=== PATIENT | male | born 1955 | race Caucasian/White ===

== ENCOUNTER 2016-11-26 10:04 | Emergency (ER) | payer OTHER ==
[~2016-11-26] VITALS: Ht 188 cm; Wt 88.5 kg
[~2016-11-26 10:04] MED LIST: ATEN25TA2 PO; BENA10TA10 PO; FURO-570 PO; MEG40 PO; POTA20TE62 PO; ZOLP10TA1 PO
--- NOTE | 2016-11-26 10:04 | NUR ---
Patient was BIBA and taken to bed 08 via gurney per EMS.
[2016-11-26 10:06] VITALS: BP 109/63
--- NOTE | 2016-11-26 10:29 | NUR ---
Dr. Duran evaluating patient at bedside.
--- NOTE | 2016-11-26 10:32 | NUR ---
61 YO MALE BIB EMS FROM FIELD FOR SOB AND COUGH . DENIES N/V/D; SKIN IS PINK/WARM/DRY; AAOX4 WITH EVEN AND STEADY GAIT; LUNGS CLEAR BL; HR EVEN AND REGULAR; PT DENIES ANY FEVER, or CP AT THIS TIME; PATIENT STATES PAIN OF 0/10 AT THIS TIME; VSS; PATIENT POSITIONED FOR COMFORT; HOB ELEVATED; BEDRAILS UP X2; BED DOWN. ER MD MADE AWARE OF PT STATUS.
--- NOTE | 2016-11-26 10:35 | NUR ---
LAB at bedside.
[2016-11-26 10:51] LABS: BASOPHILS # (AUTO) 0.4 K/uL (0.00-0.22); BASOPHILS % (AUTO) 3.2 % (0.0-2.0); EOSINOPHILS % (AUTO) 0.3 % (0.0-4.0); HEMATOCRIT 42.6 % (36-52); HEMOGLOBIN 13.9 g/dL (12.0-18.0); LYMPHOCYTES % (AUTO) 9.3 % (20.5-51.1); MEAN CORPUSCULAR HEMOGLOBIN 28 pg (27-31); MEAN CORPUSCULAR HGB CONC 33 g/dL (33-37); MEAN CORPUSCULAR VOLUME 86 fL (80-94); MONOCYTES # (AUTO) 1.3 K/uL (0.8-1.0); MONOCYTES % (AUTO) 11.5 % (1.7-9.3); NEUTROPHILS # (AUTO) 8.2 K/uL (1.8-7.7); NEUTROPHILS % (AUTO) 75.7 % (42.2-75.2); PLATELET COUNT (AUTO) 213 K/uL (140-450); RED BLOOD CELL COUNT(AUTO) 4.95 MIL/uL (4.20-6.10); RED CELL DISTRIBUTION WIDTH 12.7 % (11.6-13.7)
--- NOTE | 2016-11-26 10:56 | NUR ---
Patient being taken to CT via aurelia leach.
[2016-11-26 11:03] LABS: WHITE BLOOD COUNT (AUTO) 10.9 K/uL (4.8-10.8)
--- NOTE | 2016-11-26 11:10 | NUR ---
Patient back from CT via [facility].
[2016-11-26 11:20] LABS: ALBUMIN 3.4 g/dL (3.4-5.0); ANION GAP 8.5 (8-16); CARBON DIOXIDE 33.1 mmol/L (21-32); CREATININE 1.4 mg/dL (0.7-1.3); POTASSIUM 3.6 mmol/L (3.5-5.1)
[2016-11-26 11:47] LABS: APPEARANCE,URINE CLEAR (CLEAR); BILIRUBIN,URINE NEGATIVE (NEGATIVE); BLOOD, URINE NEGATIVE (NEGATIVE); COLOR,URINE YELLOW (YELLOW); LEUKOCYTE ESTERASE ,URINE NEGATIVE (NEGATIVE); NITRITE, URINE NEGATIVE (NEGATIVE); UGLUCOSE NEGATIVE (NEGATIVE)
[2016-11-26 11:53] LABS: BARBITURATE, URINE NEG. ng/ml (NEG <=200); BENZODIAZEPINE, URINE NEG. ng/mL (NEG <=200); CANNABINOID, URINE NEG. ng/mL (NEG <=50); COCAINE, URINE NEG. ng/mL (NEG <=300); OPIATE, URINE NEG. ng/mL (NEG <=2000); PHENCYCLIDINE SCREEN,URINE NEG. ng/mL (NEG <=25)
[2016-11-26 12:44] VITALS: BP 119/78
--- NOTE | 2016-11-26 12:44 | NUR ---
Patient discharged with v/s stable. Written and verbal after care instructions given and explained. Patient alert, oriented and verbalized understanding of instructions. Ambulatory with to car. All questions addressed prior to discharge. ID band removed. Patient advised to follow up with PMD. Rx of levaquin given. Patient educated on indication of medication including possible reaction and side effects. Opportunity to ask questions provided and answered.
== END 2016-11-26 12:44 | disposition home or self-care (01) ==
LOC: MED 10:04
DX: J18.9 Pneumonia, unspecified organism (principal); G92 Toxic encephalopathy; T43.625A Adverse effect of amphetamines, initial encounter; Y92.89 Other specified places as the place of occurrence of the external cause; J45.909 Unspecified asthma, uncomplicated; I11.0 Hypertensive heart disease with heart failure; I50.9 Heart failure, unspecified
CPT/HCPCS: 36415; 70450; 71010; 80053; 80305; 81003; 82140; 83605; 83880; 84484; 85025; 87804; 99285; Q0092

== ENCOUNTER 2017-03-02 23:19 | Emergency (ER) | payer OTHER ==
[~2017-03-02] VITALS: Ht 188 cm; Wt 90.7 kg
[2017-03-02 23:23] VITALS: BP 126/90
--- NOTE | 2017-03-03 03:33 | NUR ---
61 Y/O M W/C/O REDNESS/SWELLING TO R LOWER LEG, AND CHILLS X 3 DAYS. MED HX CHF. DENIES ANY SOB.N WALLACE ROBLES MADE AWARE.
--- NOTE | 2017-03-03 04:05 | NUR ---
Dr. Duran evaluating patient at bedside.
[2017-03-03] MEDS ORDERED: cefTRIAXone 1,000 MG in LIDOCAINE 1% ***ER ONLY *** 2.1 ML IM ONE (04:10)
[2017-03-03 04:36] VITALS: BP 136/96
--- NOTE | 2017-03-03 04:36 | NUR ---
Patient discharged with v/s stable. Written and verbal after care instructions given and explained. Patient alert, oriented and verbalized understanding of instructions. Ambulatory with steady gait. All questions addressed prior to discharge. ID band removed. Patient advised to follow up with PMD IN 2-3 DAYS. Rx of KEFLEX, AND BACTRIM given. Patient educated on indication of medication including possible reaction and side effects. Opportunity to ask questions provided and answered.
== END 2017-03-03 04:36 | disposition home or self-care (01) ==
LOC: MED 23:19
DX: L03.115 Cellulitis of right lower limb (principal); J45.909 Unspecified asthma, uncomplicated; I50.9 Heart failure, unspecified; I10 Essential (primary) hypertension; Z86.73 Personal history of transient ischemic attack (TIA), and cerebral infarction without residual deficits; Z79.899 Other long term (current) drug therapy
CPT/HCPCS: 96372; 99283; J0696; J2001

== ENCOUNTER 2018-02-14 15:10 | Inpatient (IN) | payer OTHER ==
[~2018-02-14] VITALS: Ht 188 cm; Wt 90.7 kg
[2018-02-14 15:15] VITALS: BP 109/79
[2018-02-14] MEDS ORDERED: ASPIRIN 81 MG TAB.CHEW PO ONE (15:35)
[2018-02-14 16:15] LABS: BASOPHILS % (AUTO) 0.6 % (0.0-2.0); EOSINOPHILS # (AUTO) 0.2 K/uL (0-0.4); EOSINOPHILS % (AUTO) 2.6 % (0.0-4.0); HEMATOCRIT 40.9 % (36-52); HEMOGLOBIN 13.2 g/dL (12.0-18.0); LYMPHOCYTES # (AUTO) 1.6 K/uL (2.0-11.5); LYMPHOCYTES % (AUTO) 26.1 % (20.5-51.1); MEAN CORPUSCULAR HEMOGLOBIN 28 pg (27-31); MEAN CORPUSCULAR HGB CONC 32 g/dL (33-37); MEAN CORPUSCULAR VOLUME 87.4 fL (80-94); MONOCYTES # (AUTO) 0.6 K/uL (0.8-1.0); MONOCYTES % (AUTO) 10.1 % (1.7-9.3); NEUTROPHILS # (AUTO) 3.8 K/uL (1.8-7.7); NEUTROPHILS % (AUTO) 60.6 % (42.2-75.2); PLATELET COUNT (AUTO) 220 K/uL (140-450); RED BLOOD CELL COUNT(AUTO) 4.68 MIL/uL (4.20-6.10); RED CELL DISTRIBUTION WIDTH 13.5 % (11.6-13.7); WHITE BLOOD COUNT (AUTO) 6.2 K/uL (4.8-10.8)
[2018-02-14 16:22] LABS: ANION GAP 10.7 (8-16); CREATININE 1.1 mg/dL (0.7-1.3); POTASSIUM 3.7 mmol/L (3.5-5.1); TOTAL BILIRUBIN 0.5 mg/dL (0.0-1.0)
[2018-02-14] MEDS ORDERED: NITROGLYCERIN 2% 1 GM PKT TP ONE (16:40)
[2018-02-14] MEDS ORDERED: KETOROLAC 30 MG/ML VIAL IVP PRN (17:30)
[2018-02-14] MEDS ORDERED: ACETAMINOPHEN 325 MG TAB PO PRN (17:30)
[2018-02-14] MEDS ORDERED: LORazepam 2 MG/ML VIAL IVP PRN (17:30)
[2018-02-14] MEDS ORDERED: NITROGLYCERIN 0.4 MG TAB SL PRN (17:30)
[2018-02-14] MEDS ORDERED: HYDROmorphone 1 MG/ML AMP IVP PRN (17:30)
[2018-02-14] MEDS ORDERED: ONDANSETRON 4 MG/2 ML VIAL IVP PRN (17:30)
[2018-02-14] MEDS ORDERED: HYDROcodone/APAP 5/325 MG 1 TAB TAB PO PRN (17:30)
[2018-02-14 18:35] VITALS: BP 101/74
[2018-02-14 18:46] VITALS: BP 102/81
[2018-02-14] MEDS: MEGESTROL 40 MG TAB PO SCH (20:38)
[2018-02-14] MEDS: SIMVASTATIN 20 MG TAB PO SCH (20:38)
[2018-02-14] MEDS ORDERED: ZOLPIDEM 10 MG TAB PO PRN (21:00)
[2018-02-15] VITALS: BP 112/76
[2018-02-15 00:24] LABS: CREATINE KINASE MB 1.7 ng/mL (0-3.6)
[2018-02-15 04:00] VITALS: BP 110/58
[2018-02-15 05:10] LABS: ALBUMIN 2.7 g/dL (3.4-5.0); ANION GAP 12.2 (8-16); CARBON DIOXIDE 26.6 mmol/L (21-32); CREATININE 1.1 mg/dL (0.7-1.3); MAGNESIUM 1.8 mg/dL (1.8-2.4); POTASSIUM 3.8 mmol/L (3.5-5.1); TOTAL BILIRUBIN 0.5 mg/dL (0.0-1.0)
[2018-02-15 08:00] VITALS: BP 104/80
[2018-02-15] MEDS: ENOXAPARIN 40 MG/0.4 ML SYR SUBQ SCH ×2 (08:55→09:00)
[2018-02-15] MEDS: MEGESTROL 40 MG TAB PO SCH ×3 (08:57→20:56)
[2018-02-15] MEDS: ATENOLOL 25 MG TAB PO SCH ×2 (08:57→09:00)
[2018-02-15] MEDS: POTASSIUM CHLORIDE 10 MEQ TABER PO SCH (08:58)
[2018-02-15] MEDS: BENAZEPRIL 10 MG TAB PO SCH (08:58)
[2018-02-15] MEDS: ASPIRIN 81 MG TAB.CHEW PO SCH (08:58)
[2018-02-15 09:14] LABS: CREATINE KINASE MB 1.8 ng/mL (0-3.6)
[2018-02-15] MEDS ORDERED: FUROSEMIDE 100 MG/10 ML VIAL IV SCH (10:30)
[2018-02-15] MEDS: ALBUTEROL 0.083% 2.5 MG/3 ML NEBU IH PRN (11:17)
[2018-02-15 12:00] VITALS: BP 112/77
[2018-02-15 16:00] VITALS: BP 98/73
[2018-02-15 20:00] VITALS: BP 99/67
[2018-02-15] MEDS: SIMVASTATIN 20 MG TAB PO SCH (20:55)
[2018-02-15] MEDS: MUPIROCIN CA NASAL 2% 1GM TUBE NS SCH (20:56)
[2018-02-15] MEDS: CHLORHEXADINE GLUC 2% CLOTH TP SCH (20:56)
[2018-02-16] VITALS: BP 93/56
[2018-02-16 03:09] LABS: BARBITURATE, URINE NEG. ng/ml (NEG <=200); BENZODIAZEPINE, URINE NEG. ng/mL (NEG <=200); CANNABINOID, URINE NEG. ng/mL (NEG <=50); COCAINE, URINE NEG. ng/mL (NEG <=300); OPIATE, URINE NEG. ng/mL (NEG <=2000); PHENCYCLIDINE SCREEN,URINE NEG. ng/mL (NEG <=25)
[2018-02-16 04:00] VITALS: BP 94/66
[2018-02-16 08:00] VITALS: BP 115/78
[2018-02-16] MEDS: ASPIRIN 81 MG TAB.CHEW PO SCH (08:35)
[2018-02-16] MEDS: POTASSIUM CHLORIDE 10 MEQ TABER PO SCH (08:35)
[2018-02-16] MEDS ORDERED: FUROSEMIDE 40 MG/4 ML VIAL IVP SCH (09:00)
[2018-02-16] MEDS: MEGESTROL 40 MG TAB PO SCH ×2 (09:00→21:00)
[2018-02-16] MEDS: ATENOLOL 25 MG TAB PO SCH (09:00)
[2018-02-16] MEDS: ENOXAPARIN 40 MG/0.4 ML SYR SUBQ SCH (09:00)
[2018-02-16] MEDS: BENAZEPRIL 10 MG TAB PO SCH (09:00)
[2018-02-16 12:00] VITALS: BP 104/78
[2018-02-16 16:33] VITALS: BP 108/68
[2018-02-16 20:00] VITALS: BP 110/74
[2018-02-16] MEDS: MUPIROCIN CA NASAL 2% 1GM TUBE NS SCH (20:36)
[2018-02-16] MEDS: SIMVASTATIN 20 MG TAB PO SCH (20:36)
[2018-02-16] MEDS: CHLORHEXADINE GLUC 2% CLOTH TP SCH (20:37)
[2018-02-16] MEDS ORDERED: FUROSEMIDE 40 MG/4 ML VIAL IVP ONE (21:00)
[2018-02-17] VITALS: BP 109/68
[2018-02-17 04:00] VITALS: BP 110/72
[2018-02-17 07:34] VITALS: BP 101/61
[2018-02-17] MEDS: POTASSIUM CHLORIDE 10 MEQ TABER PO SCH (08:33)
[2018-02-17] MEDS: ASPIRIN 81 MG TAB.CHEW PO SCH (08:33)
[2018-02-17] MEDS: ENOXAPARIN 40 MG/0.4 ML SYR SUBQ SCH (08:38)
[2018-02-17] MEDS: MEGESTROL 40 MG TAB PO SCH (09:00)
[2018-02-17] MEDS: ATENOLOL 25 MG TAB PO SCH (09:00)
[2018-02-17] MEDS: BENAZEPRIL 10 MG TAB PO SCH (09:00)
[2018-02-17] MEDS: ALBUTEROL 0.083% 2.5 MG/3 ML NEBU IH PRN (11:17)
[2018-02-17 12:00] VITALS: BP 116/96
== END 2018-02-17 15:20 | disposition home or self-care (01) | DRG 190 ==
LOC: MED 15:10 → MTU 17:36
PROVIDERS: ADMIT Hospitalist; ATTEND Hospitalist
DX: I21.4 Non-ST elevation (NSTEMI) myocardial infarction (principal); I50.43 Acute on chronic combined systolic (congestive) and diastolic (congestive) heart failure; I42.7 Cardiomyopathy due to drug and external agent; E44.1 Mild protein-calorie malnutrition; E11.9 Type 2 diabetes mellitus without complications; I25.10 Atherosclerotic heart disease of native coronary artery without angina pectoris; J45.909 Unspecified asthma, uncomplicated; I11.0 Hypertensive heart disease with heart failure; F10.10 Alcohol abuse, uncomplicated; Y90.9 Presence of alcohol in blood, level not specified; Z68.25 Body mass index [BMI] 25.0-25.9, adult; Z79.899 Other long term (current) drug therapy; Z86.73 Personal history of transient ischemic attack (TIA), and cerebral infarction without residual deficits; F15.10 Other stimulant abuse, uncomplicated
CPT/HCPCS: 36415; 71045; 80053; 80305; 82550; 82553; 83735; 83880; 84484; 85025; 87081; 94640; 99285; J1650; J1940; J2060; J7613; Q0092

== ENCOUNTER 2018-12-25 14:15 | Emergency (ER) | payer OTHER ==
[~2018-12-25] VITALS: Ht 188 cm; Wt 79.4 kg
[~2018-12-25 14:15] MED LIST changes: -BENA10TA10 PO; +BENA10TA17 PO
[2018-12-25 14:18] VITALS: BP 122/82
--- NOTE | 2018-12-25 14:23 | NUR ---
PT AMBULATED TO BED 05
--- NOTE | 2018-12-25 14:39 | NUR ---
63M C/O DOG BITE X TODAY ON LEFT FA DURING WORK. LAST TDAP UNKNOWN. BLEEDING CONTROLLED. BA/O X 3 FOLLOWS COMMANDS; PAIN IS AN 8/10 THROBBING PAIN. ERMD MADE AWARE OF STATUS. SIDE RAILS X1. HX-CHF RX: LASIX
--- NOTE | 2018-12-25 14:42 | NUR ---
PT MOVED TO BED 6
[2018-12-25] MEDS ORDERED: KETOROLAC 30 MG/ML VIAL IM ONE (15:15)
[2018-12-25] MEDS ORDERED: BACITRACIN OINT 500 UNITS/GM PKT TP ONE (15:15)
[2018-12-25 15:35] VITALS: BP 120/74
--- NOTE | 2018-12-25 15:35 | NUR ---
Patient discharged with v/s stable. Written and verbal after care instructions given and explained. Patient alert, oriented and verbalized understanding of instructions. Ambulatory with steady gait. All questions addressed prior to discharge. ID band removed. Patient advised to follow up with PMD. Rx of AUGMENTIN, ACETAMINOPHEN given. Patient educated on indication of medication including possible reaction and side effects. Opportunity to ask questions provided and answered.
== END 2018-12-25 15:35 | disposition home or self-care (01) ==
LOC: MED 14:15
DX: S51.812A Laceration without foreign body of left forearm, initial encounter (principal); J45.909 Unspecified asthma, uncomplicated; I11.0 Hypertensive heart disease with heart failure; I50.9 Heart failure, unspecified; Z86.73 Personal history of transient ischemic attack (TIA), and cerebral infarction without residual deficits; Z79.899 Other long term (current) drug therapy; W54.0XXA Bitten by dog, initial encounter; Y93.89 Activity, other specified; Y92.096 Garden or yard of other non-institutional residence as the place of occurrence of the external cause; Y99.8 Other external cause status
CPT/HCPCS: 90471; 90715; 96372; 99283; J1885

== ENCOUNTER 2019-04-23 10:22 | Emergency (ER) | payer OTHER ==
[~2019-04-23] VITALS: Ht 188 cm; Wt 83.9 kg
[~2019-04-23 10:22] MED LIST changes: -BENA10TA17 PO; +BENA10TA60 PO
[2019-04-23 10:28] VITALS: BP 121/75
--- NOTE | 2019-04-23 10:30 | NUR ---
PT TO ER BED 4
--- NOTE | 2019-04-23 10:41 | NUR ---
63/M BIB SELF C/O CONSTANT Right BACK PAIN x 3 days. + Nausea. Denies V/D. Denies urinary symptoms.Med hx: CHF, Taking Lasix QD. PATIENT STATES PAIN OF 9/10 AT THIS TIME.PATIENT POSITIONED FOR COMFORT; HOB ELEVATED; BEDRAILS UP X1; BED DOWN. ER MD MADE AWARE OF PT STATUS.
--- NOTE | 2019-04-23 11:00 | NUR ---
LAB AT BEDSIDE.
[2019-04-23 11:10] LABS: BASOPHILS # (AUTO) 0.1 K/uL (0.00-0.22); BASOPHILS % (AUTO) 1.2 % (0.0-2.0); EOSINOPHILS # (AUTO) 0.1 K/uL (0-0.4); EOSINOPHILS % (AUTO) 1.6 % (0.0-4.0); HEMATOCRIT 41.1 % (36-52); HEMOGLOBIN 14.1 g/dL (12.0-18.0); LYMPHOCYTES # (AUTO) 1.3 K/uL (2.0-11.5); LYMPHOCYTES % (AUTO) 24.9 % (20.5-51.1); MEAN CORPUSCULAR HEMOGLOBIN 30 pg (27-31); MEAN CORPUSCULAR HGB CONC 34 g/dL (33-37); MEAN CORPUSCULAR VOLUME 86.6 fL (80-94); MONOCYTES # (AUTO) 0.4 K/uL (0.8-1.0); MONOCYTES % (AUTO) 8.3 % (1.7-9.3); NEUTROPHILS # (AUTO) 3.3 K/uL (1.8-7.7); PLATELET COUNT (AUTO) 203 K/uL (140-450); RED BLOOD CELL COUNT(AUTO) 4.74 MIL/uL (4.20-6.10); WHITE BLOOD COUNT (AUTO) 5.2 K/uL (4.8-10.8)
[2019-04-23 11:12] LABS: BILIRUBIN,URINE NEGATIVE (NEGATIVE); BLOOD, URINE NEGATIVE (NEGATIVE); COLOR,URINE DARK YELLOW (YELLOW); LEUKOCYTE ESTERASE ,URINE NEGATIVE (NEGATIVE); NITRITE, URINE NEGATIVE (NEGATIVE); UGLUCOSE NEGATIVE (NEGATIVE)
[2019-04-23 11:28] LABS: ALBUMIN 3.7 g/dL (3.4-5.0); ANION GAP 12.8 (8-16); CARBON DIOXIDE 30.9 mmol/L (21-32); CREATININE 1.1 mg/dL (0.6-1.3); POTASSIUM 3.7 mmol/L (3.5-5.1); TOTAL BILIRUBIN 0.6 mg/dL (0.0-1.0)
[2019-04-23 11:37] LABS: APPEARANCE,URINE CLEAR (CLEAR); RBC,URINE 0-5 /HPF (0-5); WBC,URINE 0-5 /HPF (0-5)
--- NOTE | 2019-04-23 11:37 | NUR ---
REPORTED GIVEN TO VALENTE CHARGE NURSE.
[2019-04-23 12:35] VITALS: BP 123/69
--- NOTE | 2019-04-23 12:35 | NUR ---
Patient discharged with v/s stable. Written and verbal after care instructions given and explained. Patient alert, oriented and verbalized understanding of instructions. Ambulatory with steady gait. All questions addressed prior to discharge. ID band removed. Patient advised to follow up with PMD. Rx of ZOFRAN, MIRALAX& NORCO given. Patient educated on indication of medication including possible reaction and side effects. Opportunity to ask questions provided and answered.
== END 2019-04-23 12:35 | disposition home or self-care (01) ==
LOC: MED 10:22
DX: K59.00 Constipation, unspecified (principal); M54.5 Low back pain; R42 Dizziness and giddiness; J45.909 Unspecified asthma, uncomplicated; I10 Essential (primary) hypertension; Z86.73 Personal history of transient ischemic attack (TIA), and cerebral infarction without residual deficits; Z79.899 Other long term (current) drug therapy
CPT/HCPCS: 36415; 80053; 81001; 83690; 85025; 99284

== ENCOUNTER 2019-06-23 12:33 | Emergency (ER) | payer OTHER ==
[~2019-06-23] VITALS: Ht 188 cm; Wt 79.4 kg
[2019-06-23 12:34] VITALS: BP 120/57
[2019-06-23 13:40] VITALS: BP 119/63
== END 2019-06-23 13:40 | disposition home or self-care (01) ==
LOC: MED 12:33
DX: R09.89 Other specified symptoms and signs involving the circulatory and respiratory systems (principal); Z20.828 Contact with and (suspected) exposure to other viral communicable diseases; H57.13 Ocular pain, bilateral; J45.909 Unspecified asthma, uncomplicated; I11.0 Hypertensive heart disease with heart failure; I50.9 Heart failure, unspecified; Z86.73 Personal history of transient ischemic attack (TIA), and cerebral infarction without residual deficits
CPT/HCPCS: 71045; 99283; Q0092

== ENCOUNTER 2019-07-02 12:28 | Emergency (ER) | payer OTHER ==
[~2019-07-02] VITALS: Ht 188 cm; Wt 77.1 kg
[2019-07-02 12:31] VITALS: BP 109/74
--- NOTE | 2019-07-02 12:31 | NUR ---
Patient ambulated to bed 4. RN evaluating patient at bedside.
--- NOTE | 2019-07-02 12:43 | NUR ---
EKG completed at bedside by EMT.
[2019-07-02] MEDS ORDERED: KETOROLAC 30 MG/ML VIAL IVP ONE (12:55)
--- NOTE | 2019-07-02 12:55 | NUR ---
C/O INTERMITTENT CHEST PAIN 3/10 AND THROBBING, RADIATING TO L ARM X 3 DAYS. PT DENIES SOB, N/V, SKIN WARM/DRY. PT A&O X4, ANSWERING QUESTIONS APPROPRIATELY. NO ACUTE DISTRESS NOTED. PT REPORTS HX OF CHF & STROKE. DENIES TAKING ANTICOAGULANTS. 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 BED IN LOW POSITION, SIDE RAIL UP X1.
--- NOTE | 2019-07-02 13:04 | NUR ---
XR AT BEDSIDE.
[2019-07-02 13:08] LABS: BASOPHILS # (AUTO) 0.1 K/uL (0.00-0.22); BASOPHILS % (AUTO) 1.4 % (0.0-2.0); EOSINOPHILS # (AUTO) 0.1 K/uL (0-0.4); EOSINOPHILS % (AUTO) 3.2 % (0.0-4.0); HEMATOCRIT 39.3 % (36-52); HEMOGLOBIN 13.3 g/dL (12.0-18.0); LYMPHOCYTES # (AUTO) 1.5 K/uL (2.0-11.5); LYMPHOCYTES % (AUTO) 33.8 % (20.5-51.1); MEAN CORPUSCULAR HEMOGLOBIN 30 pg (27-31); MEAN CORPUSCULAR HGB CONC 34 g/dL (33-37); MEAN CORPUSCULAR VOLUME 88.6 fL (80-94); MONOCYTES # (AUTO) 0.4 K/uL (0.8-1.0); MONOCYTES % (AUTO) 9.5 % (1.7-9.3); NEUTROPHILS # (AUTO) 2.2 K/uL (1.8-7.7); NEUTROPHILS % (AUTO) 52.1 % (42.2-75.2); PLATELET COUNT (AUTO) 210 K/uL (140-450); RED BLOOD CELL COUNT(AUTO) 4.43 MIL/uL (4.20-6.10); RED CELL DISTRIBUTION WIDTH 13.4 % (11.6-13.7); WHITE BLOOD COUNT (AUTO) 4.3 K/uL (4.8-10.8)
--- NOTE | 2019-07-02 13:51 | NUR ---
Dr. Zimmerman is evaluating the patient at bedside.
[2019-07-02 14:14] LABS: ALBUMIN 3.8 g/dL (3.4-5.0); ANION GAP 9.2 (8-16); CARBON DIOXIDE 31.4 mmol/L (21-32); CREATININE 1.2 mg/dL (0.6-1.3); POTASSIUM 3.6 mmol/L (3.5-5.1); TOTAL BILIRUBIN 0.7 mg/dL (0.0-1.0)
[2019-07-02 15:53] VITALS: BP 115/72
== END 2019-07-02 15:53 | disposition home or self-care (01) ==
LOC: MED 12:28
DX: R07.9 Chest pain, unspecified (principal); I11.0 Hypertensive heart disease with heart failure; J45.909 Unspecified asthma, uncomplicated; Z79.899 Other long term (current) drug therapy
CPT/HCPCS: 36415; 71045; 80053; 81002; 84484; 85025; 93005; 96374; 99285; J1885; Q0092

== ENCOUNTER 2019-09-22 05:35 | Emergency (ER) | payer OTHER ==
[~2019-09-22] VITALS: Ht 188 cm; Wt 77.1 kg
[2019-09-22 05:40] VITALS: BP 134/98
--- NOTE | 2019-09-22 05:43 | NUR ---
PT AMBULATED TO BED #11
--- NOTE | 2019-09-22 05:48 | NUR ---
63 Y/O MALE C/O R HAND, LFOREARM, AND R LOWER LEG, ITCHYNESS. X2DAYS. SWELLING AND REDNESS NOTED. 5/10 NUMBNESS AND PAIN. CAP REFILL <3 SECONDS. PMH: CHF, HTN, MINI STROKE 1 YR AGO. EDMUNDO
--- NOTE | 2019-09-22 05:49 | NUR ---
ERMD AT BEDSIDE EXAMINING PT
[2019-09-22 05:57] VITALS: BP 134/98
--- NOTE | 2019-09-22 05:57 | NUR ---
Patient discharged with v/s stable. Written and verbal after care instructions given and explained. Patient alert, oriented and verbalized understanding of instructions. Ambulatory with steady gait. All questions addressed prior to discharge. ID band removed. Patient advised to follow up with PMD. Rx of KEFLEX, BACTRIM, AND BENADRYL given. Patient educated on indication of medication including possible reaction and side effects. Opportunity to ask questions provided and answered.
== END 2019-09-22 05:57 | disposition home or self-care (01) ==
LOC: MED 05:35
DX: S60.561A Insect bite (nonvenomous) of right hand, initial encounter (principal); S80.861A Insect bite (nonvenomous), right lower leg, initial encounter; L03.114 Cellulitis of left upper limb; I50.9 Heart failure, unspecified; I63.9 Cerebral infarction, unspecified; I10 Essential (primary) hypertension; Z79.899 Other long term (current) drug therapy; W57.XXXA Bitten or stung by nonvenomous insect and other nonvenomous arthropods, initial encounter; Y93.89 Activity, other specified; Y92.89 Other specified places as the place of occurrence of the external cause; Y99.8 Other external cause status
CPT/HCPCS: 99283

== ENCOUNTER 2019-10-06 18:32 | Emergency (ER) | payer OTHER ==
[~2019-10-06] VITALS: Ht 188 cm; Wt 74.8 kg
[2019-10-06 18:45] VITALS: BP 142/95
[2019-10-06 20:30] LABS: BASOPHILS # (AUTO) 0.1 K/uL (0.00-0.22); EOSINOPHILS # (AUTO) 0.2 K/uL (0-0.4); EOSINOPHILS % (AUTO) 2.9 % (0.0-4.0); HEMATOCRIT 39.3 % (36-52); HEMOGLOBIN 13.3 g/dL (12.0-18.0); LYMPHOCYTES # (AUTO) 2.2 K/uL (2.0-11.5); LYMPHOCYTES % (AUTO) 41.3 % (20.5-51.1); MEAN CORPUSCULAR HEMOGLOBIN 30 pg (27-31); MEAN CORPUSCULAR HGB CONC 34 g/dL (33-37); MEAN CORPUSCULAR VOLUME 89.1 fL (80-94); MONOCYTES # (AUTO) 0.5 K/uL (0.8-1.0); MONOCYTES % (AUTO) 8.8 % (1.7-9.3); NEUTROPHILS # (AUTO) 2.4 K/uL (1.8-7.7); PLATELET COUNT (AUTO) 215 K/uL (140-450); RED BLOOD CELL COUNT(AUTO) 4.41 MIL/uL (4.20-6.10); RED CELL DISTRIBUTION WIDTH 13.3 % (11.6-13.7); WHITE BLOOD COUNT (AUTO) 5.2 K/uL (4.8-10.8)
[2019-10-06 20:36] LABS: ANION GAP 10.6 (8-16); CARBON DIOXIDE 30.1 mmol/L (21-32); CREATININE 1.1 mg/dL (0.6-1.3); POTASSIUM 3.7 mmol/L (3.5-5.1)
[2019-10-06 21:30] VITALS: BP 142/95
== END 2019-10-06 21:24 | disposition home or self-care (01) ==
LOC: MED 18:32
DX: L08.9 Local infection of the skin and subcutaneous tissue, unspecified (principal); J45.909 Unspecified asthma, uncomplicated; I11.0 Hypertensive heart disease with heart failure; I50.9 Heart failure, unspecified; Z86.73 Personal history of transient ischemic attack (TIA), and cerebral infarction without residual deficits; Z79.899 Other long term (current) drug therapy
CPT/HCPCS: 36415; 80048; 85025; 99283

== ENCOUNTER 2019-10-24 06:52 | Emergency (ER) | payer OTHER ==
[~2019-10-24] VITALS: Ht 188 cm; Wt 77.1 kg
[2019-10-24 06:56] VITALS: BP 113/69
--- NOTE | 2019-10-24 07:04 | NUR ---
pt ambulated to bed 04 steady gait
--- NOTE | 2019-10-24 07:08 | NUR ---
ERMD AT BEDSIDE EVALUATING PT
--- NOTE | 2019-10-24 07:08 | NUR ---
64 Y/O MALE C/O INSECT BITES L ARM XTODAY. FEELS NUMBNESS/TIGHTNESS. MED HX: CHF, MINI STROKE X1 YR AGO NKA
[2019-10-24] MEDS ORDERED: cephALEXin 500 MG CAP PO ONE (07:15)
--- NOTE | 2019-10-24 07:21 | NUR ---
REPORT GIVEN TO FLORENCIO QUINTANILLA FOR CONTINUITY OF CARE
--- NOTE | 2019-10-24 07:22 | NUR ---
Received report from SOCORRO Shea. Transfer of care at this time
[2019-10-24 07:36] VITALS: BP 118/71
--- NOTE | 2019-10-24 07:37 | NUR ---
Patient discharged with v/s stable. Written and verbal after care instructions given and explained. Patient alert, oriented and verbalized understanding of instructions. Ambulatory with steady gait. All questions addressed prior to discharge. ID band removed. Patient advised to follow up with PMD. Rx of Keflex 500mg given. Patient educated on indication of medication including possible reaction and side effects. Opportunity to ask questions provided and answered.
== END 2019-10-24 07:37 | disposition home or self-care (01) ==
LOC: MED 06:52
DX: S40.862A Insect bite (nonvenomous) of left upper arm, initial encounter (principal); L03.114 Cellulitis of left upper limb; I10 Essential (primary) hypertension; I51.89 Other ill-defined heart diseases; I63.9 Cerebral infarction, unspecified; J45.909 Unspecified asthma, uncomplicated; Z79.899 Other long term (current) drug therapy; W57.XXXA Bitten or stung by nonvenomous insect and other nonvenomous arthropods, initial encounter; Y93.89 Activity, other specified; Y92.89 Other specified places as the place of occurrence of the external cause; Y99.8 Other external cause status
CPT/HCPCS: 99283

== ENCOUNTER 2019-12-19 06:09 | Emergency (ER) | payer OTHER ==
[~2019-12-19] VITALS: Ht 188 cm; Wt 66.7 kg
[2019-12-19 06:13] VITALS: BP 117/60
--- NOTE | 2019-12-19 06:25 | NUR ---
64 Y/O MALE C/O RASH ON L SIDE UPPER TORSO X1 MONTH, CAUSING ITCHINESS. PT DENIES PAIN AT THIS TIME. SMALL RED BUMPS NOTED. SKIN WARM AND DRY. VSS. MED HX: CHF RX: LASIX, POTASSIUM NKA
--- NOTE | 2019-12-19 06:32 | NUR ---
ERMD AT BEDSIDE EVALUATING PT
[2019-12-19 06:46] VITALS: BP 117/60
--- NOTE | 2019-12-19 06:46 | NUR ---
Patient discharged with v/s stable. Written and verbal after care instructions given and explained. Patient alert, oriented and verbalized understanding of instructions. Ambulatory with steady gait. All questions addressed prior to discharge. ID band removed. Patient advised to follow up with PMD. Rx of ACYCLOVIR AND DPIHENHYDRAMINE HYDROCHLORIDE given. Patient educated on indication of medication including possible reaction and side effects. Opportunity to ask questions provided and answered.
== END 2019-12-19 06:46 | disposition home or self-care (01) ==
LOC: MED 06:09
DX: B02.9 Zoster without complications (principal); R21 Rash and other nonspecific skin eruption; I10 Essential (primary) hypertension; I63.9 Cerebral infarction, unspecified; I50.9 Heart failure, unspecified; Z79.899 Other long term (current) drug therapy
CPT/HCPCS: 99283

== ENCOUNTER 2019-12-28 11:33 | Emergency (ER) | payer OTHER ==
[~2019-12-28] VITALS: Ht 188 cm; Wt 66.7 kg
[2019-12-28 11:41] VITALS: BP 112/73
--- NOTE | 2019-12-28 11:52 | NUR ---
PT C/O PAINFUL, ITCHY, AND BURNING RASH ON THE LEFT-SIDED RIBS AREA FOR 9 DAYS. PT WAS SEEN HERE ON 12/19/2019 AND DX WITH SHINGLES AND DISCHARGED WITH ACYCLOVIR AND BENADRYL. PT STATES THE RASH ARE GETTING MORE AND MORE PAINFUL. DENIES FEVER, CHILLS, OR SOB. PMH: CHF. MEDS: LASIX, POTASSIUM. DENIES N/V/D; SKIN IS PINK/WARM/DRY; AAOX4 WITH EVEN AND STEADY GAIT; LUNGS CLEAR BL; HR EVEN AND REGULAR; PATIENT STATES PAIN OF 6/10 AT THIS TIME; VSS; PATIENT POSITIONED FOR COMFORT; HOB ELEVATED; BEDRAILS UP X1; BED DOWN. ER MD MADE AWARE OF PT STATUS.
[2019-12-28 12:13] VITALS: BP 134/88
--- NOTE | 2019-12-28 12:14 | NUR ---
Patient discharged with v/s stable. Written and verbal after care instructions given and explained. Patient alert, oriented and verbalized understanding of instructions. Ambulatory with steady gait. All questions addressed prior to discharge. ID band removed. Patient advised to follow up with PMD. Rx of Adah 5mg-325mg given. Patient educated on indication of medication including possible reaction and side effects. Opportunity to ask questions provided and answered.
== END 2019-12-28 12:14 | disposition home or self-care (01) ==
LOC: MED 11:33
DX: B02.9 Zoster without complications (principal); J45.909 Unspecified asthma, uncomplicated; I11.0 Hypertensive heart disease with heart failure; I50.9 Heart failure, unspecified; Z86.73 Personal history of transient ischemic attack (TIA), and cerebral infarction without residual deficits; Z79.899 Other long term (current) drug therapy
CPT/HCPCS: 99283

== ENCOUNTER 2020-01-22 10:56 | Emergency (ER) | payer OTHER ==
[~2020-01-22] VITALS: Ht 188 cm; Wt 68.0 kg
[2020-01-22 11:08] VITALS: BP 97/77
--- NOTE | 2020-01-22 11:30 | NUR ---
C/O FEELING WEAK, AND HAVING APPETITE CHANGES OVER THE LAST WEEK. PT STATES HE EATS AND THEN HAS AN "UGLY" FEELING AFTER, LIKE HE "JUST DOESN'T FEEL GOOD". AND SOFT/FLAT/NON TENDER TO PALPATION. LBM YESTERDAY & REGULAR PER PT. PT ALSO REPORTS NAUSEA BUT STATES HE HAS NOT BEEN VOMITING. 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
--- NOTE | 2020-01-22 11:54 | NUR ---
COVID & FLU SWAB COLLECTED AND SENT TO LAB
[2020-01-22 12:06] LABS: HEMATOCRIT 42.2 % (36-52); HEMOGLOBIN 14.6 g/dL (12.0-18.0); MEAN CORPUSCULAR HEMOGLOBIN 31 pg (27-31); MEAN CORPUSCULAR VOLUME 88.7 fL (80-94); RED BLOOD CELL COUNT(AUTO) 4.76 MIL/uL (4.20-6.10); WHITE BLOOD COUNT (AUTO) 5.3 K/uL (4.8-10.8)
[2020-01-22 12:07] LABS: BASOPHILS % (AUTO) 1.2 % (0.0-2.0); EOSINOPHILS % (AUTO) 1.1 % (0.0-4.0); LYMPHOCYTES # (AUTO) 1.7 K/uL (2.0-11.5); MEAN CORPUSCULAR HGB CONC 35 g/dL (33-37); MONOCYTES # (AUTO) 0.5 K/uL (0.8-1.0); MONOCYTES % (AUTO) 9.8 % (1.7-9.3); NEUTROPHILS % (AUTO) 55.9 % (42.2-75.2); PLATELET COUNT (AUTO) 275 K/uL (140-450); RED CELL DISTRIBUTION WIDTH 14.1 % (11.6-13.7)
[2020-01-22 12:08] LABS: BASOPHILS # (AUTO) 0.1 K/uL (0.00-0.22); EOSINOPHILS # (AUTO) 0.1 K/uL (0-0.4)
[2020-01-22 12:23] LABS: ANION GAP 11.2 (8-16); POTASSIUM 4.2 mmol/L (3.5-5.1); TOTAL BILIRUBIN 0.9 mg/dL (0.0-1.0)
[2020-01-22 12:24] LABS: ALBUMIN 4.6 g/dL (3.4-5.0)
[2020-01-22 13:20] LABS: PROTHROMBIN TIME 10.4 secs (10.8-13.4)
--- NOTE | 2020-01-22 14:52 | NUR ---
IV removed, catheter intact and site benign. Applied folded 4x4 gauze and tape to stop bleeding.
[2020-01-22 14:53] VITALS: BP 110/80
== END 2020-01-22 14:53 | disposition home or self-care (01) ==
LOC: MED 10:56
DX: B34.9 Viral infection, unspecified (principal); R43.8 Other disturbances of smell and taste; I50.9 Heart failure, unspecified; I63.9 Cerebral infarction, unspecified; I10 Essential (primary) hypertension; J45.909 Unspecified asthma, uncomplicated; Z20.828 Contact with and (suspected) exposure to other viral communicable diseases; Z79.899 Other long term (current) drug therapy
CPT/HCPCS: 71045; 80053; 83690; 83880; 84484; 85025; 85610; 85730; 87804; 93005; 99285; U0003; 81002

== ENCOUNTER 2020-05-04 09:10 | Emergency (ER) | payer OTHER ==
[~2020-05-04] VITALS: Ht 188 cm; Wt 68.0 kg
[2020-05-04 09:12] VITALS: BP 104/57
== END 2020-05-04 09:38 | disposition home or self-care (01) ==
LOC: MED 09:10
DX: M13.821 Other specified arthritis, right elbow (principal); Z86.73 Personal history of transient ischemic attack (TIA), and cerebral infarction without residual deficits
CPT/HCPCS: 29105; 99283

== ENCOUNTER 2020-08-31 14:17 | Emergency (ER) | payer OTHER ==
[~2020-08-31] VITALS: Ht 188 cm; Wt 68.0 kg
[2020-08-31 14:35] VITALS: BP 86/57
--- NOTE | 2020-08-31 14:51 | NUR ---
Dr. Zimmerman is evaluating patient at bedside with WILFREDO Fatima
[2020-08-31] MEDS ORDERED: KETOROLAC 30 MG/ML VIAL IM ONE (14:55)
[2020-08-31] MEDS ORDERED: IBUP-1842 PO (15:01)
[2020-08-31] MEDS ORDERED: HYD1C TP (15:01)
[2020-08-31] MEDS ORDERED: DIPH25TA53 PO (15:01)
--- NOTE | 2020-08-31 15:15 | NUR ---
64 y/o M BIB self frome with c/c rash and low back pain. Patient A&Ox4, ambulatory with slow, steady gait, reports he was picking up an ice chest this morning and began experiencing low back pain. Patient also states generalized rash to left side of body. Patient states low back pain 8/10, pressure/constant, non-radiating pain. Patient states it worsens with walking or bending. Pt denies fever/chills, N/V/D, chest pain, abdominal pain, headache, dizziness. Denies any medications for pain. PMH/Sx/Meds: Denies NKA
[2020-08-31 15:33] VITALS: BP 96/57
--- NOTE | 2020-08-31 15:33 | NUR ---
Patient discharged with v/s stable. Written and verbal after care instructions given and explained. Patient alert, oriented and verbalized understanding of instructions. Ambulatory with steady gait. All questions addressed prior to discharge. ID band removed. Patient advised to follow up with PMD. Rx of Diphenhydramine Hcl, Hydrocortisone, Ibuprofen given. Patient educated on indication of medication including possible reaction and side effects. Opportunity to ask questions provided and answered.
== END 2020-08-31 15:33 | disposition home or self-care (01) ==
LOC: MED 14:17
DX: S39.012A Strain of muscle, fascia and tendon of lower back, initial encounter (principal); L30.9 Dermatitis, unspecified; J45.909 Unspecified asthma, uncomplicated; I10 Essential (primary) hypertension; Z79.899 Other long term (current) drug therapy; X58.XXXA Exposure to other specified factors, initial encounter; Y93.89 Activity, other specified; Y92.89 Other specified places as the place of occurrence of the external cause; Y99.8 Other external cause status
CPT/HCPCS: 96372; 99283; J1885

== ENCOUNTER 2020-10-06 04:35 | Emergency (ER) | payer OTHER ==
[~2020-10-06] VITALS: Ht 188 cm; Wt 63.5 kg
[~2020-10-06 04:35] MED LIST changes: +DIPH25TA53 PO; +HYD1C TP; +IBUP-1842 PO
[2020-10-06 04:40] VITALS: BP 81/61
--- NOTE | 2020-10-06 04:45 | NUR ---
SWABS COLLECTED AND TAKEN TO LAB.
--- NOTE | 2020-10-06 05:08 | NUR ---
Dr. Hernandez examining patient.
--- NOTE | 2020-10-06 05:43 | NUR ---
Patient discharged with v/s stable. Written and verbal after care instructions given and explained. Patient verbalized understanding. Ambulatory with steady gait. All questions addressed prior to discharge. Advised to follow up with PMD.
[2020-10-06 05:45] VITALS: BP 84/62
[2020-10-13] MEDS ORDERED: AMOX500C25 PO (12:38)
== END 2020-10-06 05:43 | disposition home or self-care (01) ==
LOC: MED 04:35
DX: J02.0 Streptococcal pharyngitis (principal); Z20.822 Contact with and (suspected) exposure to COVID-19; R42 Dizziness and giddiness; M79.10 Myalgia, unspecified site; J45.909 Unspecified asthma, uncomplicated; I10 Essential (primary) hypertension; Z86.73 Personal history of transient ischemic attack (TIA), and cerebral infarction without residual deficits; Z79.899 Other long term (current) drug therapy
CPT/HCPCS: 87081; 87804; 99283

== ENCOUNTER 2020-10-13 19:07 | Emergency (ER) | payer OTHER ==
[~2020-10-13] VITALS: Ht 188 cm; Wt 61.2 kg
[~2020-10-13 19:07] MED LIST changes: +AMOX500C25 PO
[2020-10-13 19:14] VITALS: BP 90/58
--- NOTE | 2020-10-13 19:18 | NUR ---
TO LOBBY, AMBULATORY
--- NOTE | 2020-10-13 22:32 | NUR ---
PT CALLED BY DR. WALDROP IN LOBBY AND OUTSIDE NO ANSWER.
--- NOTE | 2020-10-13 22:34 | NUR ---
Mariely cronin in [facility] - 10/13/20 at [address] Walls examining patient.
--- NOTE | 2020-10-13 22:38 | NUR ---
PT CALLED IN LOBBY AND OUTSIDE NO ANSWER.
--- NOTE | 2020-10-13 22:40 | NUR ---
PT CALLED IN LOBBY AND OUTSIDE NO ANSWER. PATIENT LEFT WITHOUT BEING SEEN BY DR. WALDROP. NO FURTHER CARE PROVIDED FOR PATIENT.
== END 2020-10-13 22:32 | disposition left against medical advice (07) ==
LOC: MED 19:07
DX: J02.0 Streptococcal pharyngitis (principal); Z53.21 Procedure and treatment not carried out due to patient leaving prior to being seen by health care provider

== ENCOUNTER 2020-10-20 04:09 | Emergency (ER) | payer OTHER ==
[~2020-10-20] VITALS: Ht 188 cm; Wt 65.8 kg
[2020-10-20 04:15] VITALS: BP 105/66
--- NOTE | 2020-10-20 04:15 | NUR ---
TO TENT AMBULATORY
--- NOTE | 2020-10-20 04:40 | NUR ---
SEEN AND EXAMINED BY ERMD WITH ORDERS.
[2020-10-20] MEDS ORDERED: AMOX500C25 PO (04:56)
[2020-10-20] MEDS ORDERED: IBUPROFEN 800 MG TAB PO ONE (05:00)
[2020-10-20] MEDS ORDERED: AMOXICILLIN 500 MG CAP PO ONE (05:00)
--- NOTE | 2020-10-20 05:05 | NUR ---
MEDICATED PER ERMDS ORDER, TOLERATED WELL.
--- NOTE | 2020-10-20 05:14 | NUR ---
SWAB FOR TRELL SENT TO LAB
[2020-10-20 05:35] VITALS: BP 105/66
== END 2020-10-20 05:35 | disposition home or self-care (01) ==
LOC: MED 04:09
DX: J02.9 Acute pharyngitis, unspecified (principal); Z20.822 Contact with and (suspected) exposure to COVID-19; J45.909 Unspecified asthma, uncomplicated; I10 Essential (primary) hypertension; Z86.73 Personal history of transient ischemic attack (TIA), and cerebral infarction without residual deficits; Z79.2 Long term (current) use of antibiotics; Z79.1 Long term (current) use of non-steroidal anti-inflammatories (NSAID); Z79.899 Other long term (current) drug therapy
CPT/HCPCS: 99283

== ENCOUNTER 2021-02-24 02:53 | Emergency (ER) | payer OTHER ==
[~2021-02-24] VITALS: Ht 188 cm; Wt 68.0 kg
[2021-02-24 03:07] VITALS: BP 110/81
--- NOTE | 2021-02-24 03:29 | NUR ---
PT TAKEN TO BED 11 VIA W/C
--- NOTE | 2021-02-24 03:45 | NUR ---
65 Y/O MALE BIBA FOR C/O NAUSEA /VOMITING. PT STATES THAT HE ATE SOME ROTTEN FOOD. HE CALLED 911 TO COME GET HIM BUT THEN HE WENT BACK INSIDE. WHEN HE SMELLED THE FRIDGE HE SAID THE FRIDGE HAD A SMELL AND MADE HIM SICK. UPON ARRIVING AT THE ER HE WAS SAYING THE MASK SMELLS AND WAS MAKING HIM SICK. PT DID NOT PROVIDE ANY MEDICAL HX AND WANTED TO LEAVE STATING "HE IS FINE"
--- NOTE | 2021-02-24 03:46 | NUR ---
PT STATES HE DOES NOT WANTS TO BE ASSESSED. HE DOES NOT WANT TO BE SEEN. STATES TO ER MD HE IS FINE.
== END 2021-02-24 04:10 | disposition home or self-care (01) ==
LOC: MED 02:53
DX: R11.2 Nausea with vomiting, unspecified (principal); J45.909 Unspecified asthma, uncomplicated; Z86.73 Personal history of transient ischemic attack (TIA), and cerebral infarction without residual deficits; I10 Essential (primary) hypertension; Z79.899 Other long term (current) drug therapy
CPT/HCPCS: 99283

== ENCOUNTER 2021-05-03 05:23 | Emergency (ER) | payer OTHER ==
[~2021-05-03] VITALS: Ht 188 cm; Wt 72.6 kg
[2021-05-03 05:29] VITALS: BP 119/64
--- NOTE | 2021-05-03 05:35 | NUR ---
PT TAKEN TO BED 9
--- NOTE | 2021-05-03 05:47 | NUR ---
65 Y/O MALE BIB SELF, C/O ITCHY RASH X2 MONTHS. PATIENT PRESENTS TO ED WITH RED/PINK SPOTS COVERING UPPER BODY WITH WELTS AND STRINGS OF SMALL SCABS. PT STATES THE ITCH "FEELS LIKE IT'S COMING FROM INSIDE" AND NOT JUST ON THE SURFACE OF THE SKIN. DENIES N/V/D; SKIN IS PINK/WARM/DRY; AAOX4 WITH EVEN AND STEADY GAIT; HR EVEN AND REGULAR; PT DENIES ANY FEVER, CP, SOB, OR COUGH AT THIS TIME; PATIENT STATES NO PAIN AT THIS TIME; VSS; PATIENT SITTING ON THE BED; HOB ELEVATED; BEDRAILS UP X1; BED DOWN. ER MD MADE AWARE OF PT STATUS. HX: CHF, ASTHMA, HTN NKDA MEDS: LASIX, KLOR-CON
[2021-05-03] MEDS ORDERED: ELIMC TP (06:12)
[2021-05-03] MEDS ORDERED: FEXO-8 PO (06:12)
[2021-05-03] MEDS ORDERED: HYD2.5O TP (06:12)
[2021-05-03 06:22] VITALS: BP 119/64
--- NOTE | 2021-05-03 06:22 | NUR ---
Patient discharged with v/s stable. Written and verbal after care instructions given and explained. Patient alert, oriented and verbalized understanding of instructions. Ambulatory with steady gait. All questions addressed prior to discharge. ID band removed. Patient advised to follow up with PMD. Rx of Permethrin, Fexofenadine, and Hydrocortisone given. Patient educated on indication of medication including possible reaction and side effects. Opportunity to ask questions provided and answered. vss, a/ox4, unlabored breathing, ambulatory, and calm demeaor.
== END 2021-05-03 06:22 | disposition home or self-care (01) ==
LOC: MED 05:23
DX: L98.9 Disorder of the skin and subcutaneous tissue, unspecified (principal); J45.909 Unspecified asthma, uncomplicated; I10 Essential (primary) hypertension; Z86.73 Personal history of transient ischemic attack (TIA), and cerebral infarction without residual deficits; Z79.899 Other long term (current) drug therapy
CPT/HCPCS: 99282

== ENCOUNTER 2021-05-06 06:32 | Emergency (ER) | payer OTHER ==
[~2021-05-06] VITALS: Ht 182.9 cm; Wt 70.3 kg
[~2021-05-06 06:32] MED LIST changes: +ELIMC TP; +FEXO-8 PO; +HYD2.5O TP
--- NOTE | 2021-05-06 06:45 | NUR ---
PT TAKEN TO ER BED 11
[2021-05-06 06:54] VITALS: BP 110/71
--- NOTE | 2021-05-06 07:00 | NUR ---
Dr. Miller at the bedside, pt belle.
[2021-05-06] MEDS ORDERED: KETOROLAC 60 MG/2 ML VIAL IM ONE (07:05)
[2021-05-06] MEDS ORDERED: ACETAMINOPHEN EXTRA STRENGTH 500 MG TAB PO ONE (07:05)
--- NOTE | 2021-05-06 07:17 | NUR ---
hand-off to Alisia QUINTANILLA for continuity of care.
--- NOTE | 2021-05-06 07:20 | NUR ---
report received from jos perez.
--- NOTE | 2021-05-06 07:30 | NUR ---
xray at the bedside
[2021-05-06] MEDS ORDERED: CYCL-711 PO (07:51)
[2021-05-06] MEDS ORDERED: LID5T TP (07:51)
[2021-05-06] MEDS ORDERED: ACET-10509 PO (07:51)
[2021-05-06 07:56] VITALS: BP 110/71
--- NOTE | 2021-05-06 08:00 | NUR ---
Patient discharged with v/s stable. Written and verbal after care instructions given and explained about muskuloskeletal pain. Patient alert, oriented and verbalized understanding of instructions. Ambulatory with steady gait. All questions addressed prior to discharge. ID band removed. Patient advised to follow up with PMD. Rx of acetaminophen, cyclobenzaprine, and a lidocaine patch given. Patient educated on indication of medication including possible reaction and side effects. Opportunity to ask questions provided and answered.
== END 2021-05-06 08:00 | disposition home or self-care (01) ==
LOC: MED 06:32
DX: M54.6 Pain in thoracic spine (principal); J45.909 Unspecified asthma, uncomplicated; I10 Essential (primary) hypertension; Z79.899 Other long term (current) drug therapy; Z86.73 Personal history of transient ischemic attack (TIA), and cerebral infarction without residual deficits
CPT/HCPCS: 71045; 81002; 96372; 99283; J1885

== ENCOUNTER 2021-07-28 08:42 | Emergency (ER) | payer OTHER ==
[~2021-07-28] VITALS: Ht 188 cm; Wt 78.9 kg
[~2021-07-28 08:42] MED LIST changes: +ACET-10509 PO; +CYCL-711 PO; +LID5T TP
[2021-07-28 08:46] VITALS: BP 104/78
[2021-07-28] MEDS ORDERED: CEPH-588 PO (09:40)
--- NOTE | 2021-07-28 09:41 | NUR ---
65 Y/O MALE BIB SELF C/O RED RASH BY THE UPPER LEFT CHEST EXTENDING TOWARDS THE ARMPIT X 2 WEEKS, DENIES PAIN, STINGING, NOTED ITCHING ON THE AREA. AREA APPEARS RE, NO RAISED AREAS, NO BUMPS NOTED. PT STATED THAT HE HAS ITCHING ON HIS BELLY BUTTON. DENIES PLACING ANYTHING ON THE AREA, DENIES ANY NEW LAUNDRY DETERGENT OR CLOTHES. NKA PMH: CHF
--- NOTE | 2021-07-28 09:46 | NUR ---
Patient discharged with v/s stable. Written and verbal after care instructions given and explained. Patient alert, oriented and verbalized understanding of instructions. Ambulatory with steady gait. All questions addressed prior to discharge. ID band removed. Patient advised to follow up with PMD. Rx of KEFLEX given. Patient educated on indication of medication including possible reaction and side effects. Opportunity to ask questions provided and answered. NO NURSING INTERVENTIONS RENDERED
== END 2021-07-28 09:46 | disposition home or self-care (01) ==
LOC: MED 08:42
DX: R21 Rash and other nonspecific skin eruption (principal)
CPT/HCPCS: 99283

== ENCOUNTER 2021-10-13 13:15 | Emergency (ER) | payer OTHER ==
[~2021-10-13] VITALS: Ht 188 cm; Wt 86.2 kg
[~2021-10-13 13:15] MED LIST changes: +CEPH-588 PO
[2021-10-13 13:35] VITALS: BP 99/56
--- NOTE | 2021-10-13 13:46 | NUR ---
WALKED IN C/O SORE THROAT AND RIGHT SIDED HEAD AND EAR PAIN ONSET 2 DAYS AGO. DENIES FEVER OR COUGH. AFEBRILE AT TRIAGE. DENIES ANY KNOWN CONTACT WITH COVID. DENIES COVID VACCINATION. PMH: CHF
[2021-10-13] MEDS ORDERED: COROTSOL RIGHT EAR (14:53)
[2021-10-13 15:00] VITALS: BP 104/62
--- NOTE | 2021-10-13 15:00 | NUR ---
Patient discharged with v/s stable. Written and verbal after care instructions given and explained. Patient alert, oriented and verbalized understanding of instructions. Ambulatory with steady gait. All questions addressed prior to discharge. ID band removed. Patient advised to follow up with PMD. Rx of NEOMYCIN EAR DROP given. Patient educated on indication of medication including possible reaction and side effects. Opportunity to ask questions provided and answered.
== END 2021-10-13 15:00 | disposition home or self-care (01) ==
LOC: MED 13:15
DX: J02.9 Acute pharyngitis, unspecified (principal); Z20.822 Contact with and (suspected) exposure to COVID-19; H92.01 Otalgia, right ear; H60.91 Unspecified otitis externa, right ear; R51.9 Headache, unspecified; J45.909 Unspecified asthma, uncomplicated; I11.0 Hypertensive heart disease with heart failure; I50.9 Heart failure, unspecified; Z86.73 Personal history of transient ischemic attack (TIA), and cerebral infarction without residual deficits; Z79.899 Other long term (current) drug therapy
CPT/HCPCS: 87081; 99283